=== PATIENT | female | born 1950 | race African-American/Black ===

== ENCOUNTER 2021-12-28 10:15 | Emergency (ER) | payer OTHER ==
[~2021-12-28] VITALS: Ht 167.6 cm; Wt 81.7 kg
[~2021-12-28 10:15] MED LIST: CARDURA2 MG PO; HYDROCHLOROTH12.5 MG PO; NORVASC10 MG PO; TRAMADOL 50 MG50 MG PO; ZOFRAN ODT4 MG PO
[2021-12-28 11:06] LABS: ABSOLUTE NEUTROPHILS 4.8 thou/uL (1.4-8.2); BASOPHILS 0.5 % (0.0-2.0); EOSINOPHILS 0.8 % (0.0-3.0); HEMATOCRIT 40.4 % (37.0-47.0); HEMOGLOBIN 13.4 gm/dL (12.0-15.0); LYMPHOCYTES 32.3 % (24.0-44.0); MCH 27.2 pg (26.0-34.0); MCHC 33.2 g/dL (28.0-37.0); MCV 81.9 fL (80.0-100.0); MONOCYTES 7.7 % (1.0-8.0); PLATELET COUNT 415 thou/uL (150-400); POLYS 58.7 % (36.0-66.0); RBC 4.94 mil/uL (4.20-5.00); RDW 15.6 % (10.5-14.5); WBC 8.1 thou/uL (4.0-11.0)
[2021-12-28 11:15] LABS: CALCIUM 7.6 mg/dL (8.5-10.1); CREATININE 0.6 mg/dL (0.6-1.0); POTASSIUM 3.4 mmol/L (3.5-5.1)
[2021-12-28 12:39] LABS: ALBUMIN 3.7 g/dL (3.4-5.0); DIRECT BILIRUBIN 0.1 mg/dL (<0.1-0.2); SALICYLATE < 2.8 mg/dL (2.8-20.0); SGOT 31 U/L (15-37); SGPT 44 U/L (14-59); TOTAL BILIRUBIN 0.3 mg/dL (0.2-1.0); TOTAL PROTEIN 7.6 g/dL (6.4-8.2)
[2021-12-28 12:58] VITALS: BP 116/71
--- NOTE | 2021-12-28 15:15 | EKG ---
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: ROBERT : 1950 Requested By: Jhon Luna Order Number: [id number] MD: Gerard Merida Measurements Intervals [place] Rate: 125 P: 46 IN: 155 QRS: -34 QRSD: 101 T: 105 QT: 313 QTc: 452 Interpretive Statements Sinus tachycardia Left atrial enlargement LVH with secondary repolarization abnormality Compared to ECG 11/20/2013 22:55:38 Atrial abnormality now present Left ventricular hypertrophy now present Early repolarization now present Sinus rhythm no longer present T-wave abnormality no longer present Electronically Signed On 12-28-2021 15:15:20 [employer] by Gerard Merida [email or web address] <ELECTRONICALLY SIGNED> By: Gerard Merida MD, [facility] 12/28/21 1515 1029 1029 Gerard Merida MD, [facility] /EPI
== END 2021-12-28 12:59 | disposition home or self-care (01) ==
LOC: ER 10:15
PROVIDERS: Emergency Medicine
DX: T50.991A Poisoning by other drugs, medicaments and biological substances, accidental (unintentional), initial encounter (principal); I15.8 Other secondary hypertension; F17.210 Nicotine dependence, cigarettes, uncomplicated; Z88.0 Allergy status to penicillin; Y92.89 Other specified places as the place of occurrence of the external cause